=== PATIENT | male | born 1970 | race African-American/Black ===

== ENCOUNTER 2016-08-08 11:29 | Emergency (ER) | payer OTHER ==
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
== END 2016-08-08 15:16 | disposition home or self-care (01) ==
LOC: M ED 11:29
DX: R07.89 Other chest pain (principal); M25.552 Pain in left hip; V43.63XA Car passenger injured in collision with pick-up truck in traffic accident, initial encounter; Y92.410 Unspecified street and highway as the place of occurrence of the external cause; I10 Essential (primary) hypertension; G47.00 Insomnia, unspecified; F17.210 Nicotine dependence, cigarettes, uncomplicated

== ENCOUNTER → 2018-03-22 | Outpatient (CLI) | payer OTHER | LOC: M PAIN 10:30 | DX: M79.10 Myalgia, unspecified site (principal); M47.812 Spondylosis without myelopathy or radiculopathy, cervical region; I10 Essential (primary) hypertension; M54.5 Low back pain; M25.561 Pain in right knee; M10.9 Gout, unspecified; E78.5 Hyperlipidemia, unspecified; G56.03 Carpal tunnel syndrome, bilateral upper limbs; F32.9 Major depressive disorder, single episode, unspecified; E55.9 Vitamin D deficiency, unspecified; G47.30 Sleep apnea, unspecified; F17.210 Nicotine dependence, cigarettes, uncomplicated; M19.90 Unspecified osteoarthritis, unspecified site; G62.9 Polyneuropathy, unspecified; Z79.899 Other long term (current) drug therapy; Z88.8 Allergy status to other drugs, medicaments and biological substances | CPT/HCPCS: G0463 ==

== ENCOUNTER → 2018-04-26 | Outpatient (CLI) | payer OTHER ==
[~2018-04-26] MED LIST: BUPIVACAINE HCL 0.25% 10 ML VIAL As Ordered; BUPIVACAINE HCL 0.25% 30 ML VIAL As Ordered; TRIAMCINOLONE ACETONIDE SUSP 40 MG/ML VIAL (J3301) As Ordered
== END ==
LOC: M PAIN 11:30
DX: M79.18 Myalgia, other site (principal); M54.2 Cervicalgia; M25.511 Pain in right shoulder; M25.512 Pain in left shoulder; I10 Essential (primary) hypertension; E78.5 Hyperlipidemia, unspecified; F32.9 Major depressive disorder, single episode, unspecified; M19.90 Unspecified osteoarthritis, unspecified site; G47.30 Sleep apnea, unspecified; F17.210 Nicotine dependence, cigarettes, uncomplicated; Z79.899 Other long term (current) drug therapy; Z88.8 Allergy status to other drugs, medicaments and biological substances; Z87.39 Personal history of other diseases of the musculoskeletal system and connective tissue
CPT/HCPCS: J3301

== ENCOUNTER → 2018-06-04 | Outpatient (CLI) | payer OTHER ==
--- NOTE | 2018-06-19 00:06 | ECWPNPC ---
PATIENT NAME: KAVITA STANLEY : 1970 GENDER: MALE VISIT DATE: 06/04/2018 DISCHARGE DATE: 06/04/18 1606 VISIT LOCKED DATE TIME: PHYSICIAN: HARJEET BENTON MD RESOURCE: HARJEET BENTON MD REASON FOR APPOINTMENT 1. POST TPI HISTORY OF PRESENT ILLNESS HISTORY OF PRESENT ILLNESS: PAIN THE PATIENT DESCRIBES THE PAIN... 47 YEAR OLD MALE PATIENT WITH A HISTORY OF NECK PAIN. PATIENT DESCRIBES THE PAIN ACHING, BURNING, AND HAVING IT ALL THE TIME WITH A PAIN SCORE OF 4-9/10 DEPENDING ON PHYSICAL ACTIVITY. THE PATIENT RECENTLY HAD A TRIGGER POINT INJECTION DONE ON 04/26/18 AND REPORTS THAT IT HELPED BUT HE STILL HAS SOME PAIN IN THE MIDDLE NECK AREA. THE PATIENT IS CURRENTLY TAKING BACLOFEN AND TYLENOL TO SPORTS TEACHER IN PAIN RELIEF. PATIENT DENIES UNEXPLAINABLE WEIGHT LOSS, FEVER, CHILLS, NEW CHANGES ON HIS URINARY OR BOWEL CONTROL. FALL RISK SCREENING: SCREENING :NO FALLS IN THE PAST YEAR CURRENT MEDICATIONS TAKING LISINOPRIL 20 MG TABLET 1 TABLET ORALLY ONCE A DAY, NOTES: 06-26-17 TAKING MELOXICAM 15 MG TABLET ONE HALF ORALLY BID, NOTES: 06-26-17 TAKING ALLOPURINOL 100 MG TABLET 1 TABLET ORALLY ONCE A DAY, NOTES: 06-26-17 TAKING AMLODIPINE BESYLATE 10 MG TABLET 1 TABLET ORALLY ONCE A DAY, NOTES: 06-26-17889 TAKING BACLOFEN 10 MG TABLET 1 TABLET WITH FOOD OR MILK ORALLY BID, NOTES: 06-26-17 TAKING CHOLECALCIFEROL 2000 UNIT CAPSULE 1 CAPSULE ORALLY ONCE A DAY, NOTES: 07-05 TAKING FLUOXETINE 20 MG CAPSULE 1 CAPSULE ORALLY ONCE A DAY, NOTES: 06-26-17 TAKING ACETAMINOPHEN 650 MG TABLET 1 TABLET NEEDED ORALLY EVERY 6 HRS, NOTES: 06-26-17 TAKING REFRESH LIQUIGEL 1 % SOLUTION 1 DROP INTO AFFECTED EYE NEEDED OPHTHALMIC THREE TIMES A DAY, NOTES: 06-26-17 DISCONTINUED GABAPENTIN 300 MG CAPSULE 1 CAPSULE ORALLY THREE TIMES DAILY, NOTES: 06-26-17 MEDICATION LIST REVIEWED AND RECONCILED WITH THE PATIENT PAST MEDICAL HISTORY HYPERTENSION CHRONIC LOW BACK PAIN RIGHT KNEE PAIN GOUT HYPERLIPIDEMIA CARPAL TUNNEL SYNDROME BILATERAL DEPRESSION OSTEOARTHRITIS NEUROPATHY VITAMIN D DEFICIENCY SLEEP APNEA, NO CPAP ALLERGIES NICOTINE PATCHES: RASH: ALLERGY CHANTIX: NIGHTMARES: SIDE EFFECTS SURGICAL HISTORY APPENDECTOMY 1981 LEFT KNEE ACL 1993 SINUS SURGERY 2002 ANAL FISTULA REPAIR 2013 TONSILLECTOMY 1983 FAMILY HISTORY MOTHER: 84 YRS, DIAGNOSED WITH DIABETES, HYPERTENSION 2 BROTHER(S) , 2 SISTER(S) - HEALTHY. 1 SON(S) , 1 DAUGHTER(S) - HEALTHY. DAD MEDICAL HISTORY UNKNOWN. SOCIAL HISTORY GENERAL: TOBACCO USE ARE YOU A:CURRENT SMOKER ARE YOU INTERESTED IN QUITTING?THINKING ABOUT QUITTING ALLERGY TO CHANTIX AND NICOTINE PATCHES. PT WANTS TO QUIT, BUT NOT AT THIS TIME R/T STRESS COUNSELED THE PATIENT ON SMOKING CESSATION, EDUCATION [id number]/18/2018 HOW MANY CIGARETTES A DAY DO YOU SMOKE?11-20 HOW SOON AFTER YOU WAKE UP DO YOU SMOKE YOUR FIRST CIGARETTE?WITHIN 5 MIN HOW OFTEN DO YOU SMOKE CIGARETTES?EVERY DAY PATIENT COUNSELED ON THE DANGERS OF TOBACCO USE AND URGED TO QUIT:04/26/2018 ALCOHOL SCREENING DID YOU HAVE A DRINK CONTAINING ALCOHOL IN THE PAST YEAR?NO POINTS0 INTERPRETATIONNEGATIVE RECREATIONAL DRUG USE DRUG USE?YES MARIJUANA USE OCCASIONAL, ABOUT 3X/ WEEK CAFFEINE CAFFEINE USE?YES HOW OFTEN AND HOW MUCH? COFFEE USE RARELY LANGUAGE LANGUAGES SPOKEN:BOTSWANAN LEARNING BARRIERS / SPECIAL NEEDS BARRIERS TO LEARNING?NO HEARING IMPAIRED?NO VISION IMPAIRED?NO WEARS GLASSES COGNITIVELY IMPAIRED?NO READINESS TO LEARN?YES LEARNING PREFERENCES?NO LEARNING CAPABILITIES PRESENT?YES EMOTIONAL BARRIERS?NO SPECIAL DEVICES?YES WEARS A BRACE ON BOTH WRISTS, BRACE ON RIGHT KNEE PRINT PRODUCTION ASSOCIATE NEEDED?NO DOMESTIC VIOLENCE DO YOU FEEL SAFE IN YOUR ENVIRONMENT?YES OCCUPATION: MAINTENANCE WORK, UNEMPLOYED AT PRESENT. DIET: REGULAR. EXERCISE: WALKS. MARITAL STATUS: SINGLE. PAIN CLINIC PFS, CLERGY, PUBLIC HEALTH REFERRALS PFS REFERRAL NEEDED?NO CLERGY REFERRAL NEEDED?NO PUBLIC HEALTH REFERRAL NEEDED?NO HAS THE PATIENT BEEN EDUCATED REGARDING HIS/HER PLAN OF CARE?YES HAS THE PATIENT BEEN EDUCATED REGARDING PAIN, THE RISK FOR PAIN, THE IMPORTANCE OF EFFECTIVE PAIN MANAGEMENT, AND THE PAIN ASSESSMENT PROCESS?YES ADVANCE DIRECTIVE ADVANCE DIRECTIVE DISCUSSED WITH PATIENT:YES NO ADVANCED DIRECTIVES, INFORMATION GIVEN ABOUT HEALTH CARE PROXY 06/04/18 PT. DECLINES INFORMATION VD HOSPITALIZATION/MAJOR DIAGNOSTIC PROCEDURE R/T SURGERIES REVIEW OF SYSTEMS REVIEWED BY: PROVIDER: HARJEET BENTON MD . CONSTITUTIONAL: ANY CHANGE IN YOUR MEDICAL CONDITION? NO . CHILLS NO . FEVER NO . INFECTION: DO YOU HAVE NEW INFECTIONS? NO . DO YOU HAVE HISTORY OF MRSA? NO . MUSCULOSKELETAL: ANY NEW PATTERNS OF PAIN OR NUMBNESS? NO . GASTROENTEROLOGY: ANY NEW CHANGE IN BOWEL CONTROL? NO . GENITOURINARY: ANY NEW CHANGE IN BLADDER CONTROL? NO . IS THERE A CHANCE YOU COULD BE ? NO . HEMATOLOGY/LYMPH: DO YOU TAKE ANY BLOOD THINNERS? (FOR EXAMPLE- COUMADIN, PLAVIX, AGGRENOX, PLATEL, PRADAXA, OR XARELTO) NO . WHEN WAS YOUR LAST DOSE? DATE: TIME: . NEUROLOGY: HAVE YOU FALLEN IN THE PAST 6 MONTHS? NO . ANY NEW EXTREMITY NUMBNESS OR WEAKNESS? NO . CARDIOLOGY: DO YOU HAVE A PACEMAKER OR DEFIBRILLATOR? NO . RESPIRATORY: HAVE YOU BEEN SICK IN THE PAST WEEK? NO . FEVER NO . FLU LIKE SYMPTOMS? NO . COUGH NO . INTEGUMENTARY: DO YOU HAVE ANY RASHES OR OPEN SORES? NO . ALLERGIC/IMMUNO: ARE YOU ALLERGIC TO SHELLFISH OR IV DYE? NO . ANY NEW ALLERGIES? NO . PSYCHIATRIC: DO YOU HAVE THOUGHTS OF HURTING YOURSELF OR SOMEONE ELSE? NO . ARE YOU ABUSED, NEGLECTED, OR IN AN UNSAFE ENVIRONMENT? NO . ENDOCRINOLOGY: ARE YOU DIABETIC? NO . OTHER: DO YOU NEED ANY PRESCRIPTIONS? NO . IF YES, PLEASE LIST: ____ . ANY NEW PROBLEMS WITH YOUR MEDICATIONS? NO . WHEN DID YOU LAST EAT? ____ . WHEN DID YOU LAST DRINK? ____ . WHAT DID YOU LAST DRINK? ____ . NAME OF PERSON DRIVING YOU HOME? ____ . DO YOU HAVE ANY OTHER QUESTIONS OR CONCERNS NO . VITAL SIGNS WT 219 LBS, HT 71 IN, BMI 30.54 INDEX, BP 123/75 ON LEFT SIDE, HR 92 /MIN, RR 18 /MIN, TEMP 98.9 F, OXYGEN SAT % 99%, SAFE IN ENV? (Y/N) Y, NA INITIALS AW 1500, REVIEWED BY: VD. EXAMINATION GENERAL EXAMINATION: PATIENT IS ALERT O X 3 AND COOPERATIVE. PRESENCE OF TRIGGER POINTS, BANDS OF TISSUE, AND RESTRICTION OF MOVEMENT OF THE NECK. ASSESSMENTS MYALGIA, OTHER SITE - M79.18 (PRIMARY) TREATMENT MYALGIA, OTHER SITE CLINICAL NOTES: WE DISCUSSED SEVERAL ISSUES WITH MR. STANLEY'S PAIN MANAGEMENT CASE. DUE TO THE PRESENCE OF TRIGGER POINTS, BANDS OF TISSUE, AND RESTRICTION OF MOVEMENT OF THE NECK, I WOULD LIKE TO MOVE FORWARD WITH TRIGGER POINT INJECTIONS AT THIS TIME. WE DISCUSSED THE BENEFITS, RISKS, AND ALTERNATIVES OF THE INJECTION AND THE PATIENT WOULD LIKE TO PROCEED. THE PATIENT WILL FOLLOW UP WITH ME 3-4 WEEKS AFTER THE PROCEDURE. INSTRUCTIONS WERE GIVEN, QUESTIONS WERE ANSWERED, PATIENT REPORTS UNDERSTANDING AND AGREES WITH THE PLAN. I, MARISSA RIDLEY, DOCUMENTED THE ABOVE INFORMATION ACTING A SCRIBE FOR DR. BENTON. I HAVE REVIEWED THE ABOVE DOCUMENT, WRITTEN BY MARISSA FOURNIERIBCait AND I VERIFY THAT IT IS ACCURATE. PROCEDURE CODES FA211 ESTABILISHED PATIENT [facility] FACILITY CHARGE G8427 CURRENT MEDS W/DOSAGES DOCUMENTED G8730 PAIN ASSESS POS TOOL F/U PLAN DOC DISPOSITION & COMMUNICATION FOLLOW UP 3 WEEKS ELECTRONICALLY SIGNED BY HARJEET BENTON MD, MD ON 06/18/2018 AT 06:39 PM EST DISCLAIMER : THIS IS A VISIT SUMMARY EXTRACTED FROM THE [employer] CHART. IT IS NOT A COPY OF THE [employer] PROGRESS NOTE. MTDJenny
== END ==
LOC: M PAIN 14:45
PROVIDERS: ATTEND Anesthesiology
DX: M79.18 Myalgia, other site (principal); M54.2 Cervicalgia; I10 Essential (primary) hypertension; E78.5 Hyperlipidemia, unspecified; F32.9 Major depressive disorder, single episode, unspecified; M19.90 Unspecified osteoarthritis, unspecified site; G62.9 Polyneuropathy, unspecified; G47.30 Sleep apnea, unspecified; F17.210 Nicotine dependence, cigarettes, uncomplicated; Z79.899 Other long term (current) drug therapy; Z88.8 Allergy status to other drugs, medicaments and biological substances; Z87.39 Personal history of other diseases of the musculoskeletal system and connective tissue

== ENCOUNTER → 2018-06-20 | Outpatient (CLI) | payer OTHER ==
[~2018-06-20] MED LIST changes: -BUPIVACAINE HCL 0.25% 10 ML VIAL As Ordered; +BUPIVACAINE HCL 0.25% 10 ML VIAL As Ordered ONE; -BUPIVACAINE HCL 0.25% 30 ML VIAL As Ordered; +BUPIVACAINE HCL 0.25% 30 ML VIAL As Ordered ONE; -TRIAMCINOLONE ACETONIDE SUSP 40 MG/ML VIAL (J3301) As Ordered; +TRIAMCINOLONE ACETONIDE SUSP 40 MG/ML VIAL (J3301) As Ordered ONE
--- NOTE | 2018-07-06 23:26 | ECWPNPC ---
PATIENT NAME: KAVITA STANLEY : 1970 GENDER: MALE VISIT DATE: 06/20/2018 DISCHARGE DATE: 06/20/18 1409 VISIT LOCKED DATE TIME: PHYSICIAN: HARJEET BENTON MD RESOURCE: HARJEET BENTON MD REASON FOR APPOINTMENT 1. TPI HISTORY OF PRESENT ILLNESS HISTORY OF PRESENT ILLNESS: PAIN THE PATIENT DESCRIBES THE PAIN... FALL RISK SCREENING: SCREENING :NO FALLS IN THE PAST YEAR CURRENT MEDICATIONS TAKING LISINOPRIL 20 MG TABLET 1 TABLET ORALLY ONCE A DAY TAKING BACLOFEN 10 MG TABLET 1 TABLET WITH FOOD OR MILK ORALLY BID TAKING MELOXICAM 15 MG TABLET ONE HALF ORALLY BID TAKING ALLOPURINOL 100 MG TABLET 1 TABLET ORALLY ONCE A DAY TAKING AMLODIPINE BESYLATE 10 MG TABLET 1 TABLET ORALLY ONCE A DAY TAKING CHOLECALCIFEROL 2000 UNIT CAPSULE 1 CAPSULE ORALLY ONCE A DAY TAKING FLUOXETINE 20 MG CAPSULE 1 CAPSULE ORALLY ONCE A DAY TAKING ACETAMINOPHEN 650 MG TABLET 1 TABLET NEEDED ORALLY EVERY 6 HRS TAKING REFRESH LIQUIGEL 1 % SOLUTION 1 DROP INTO AFFECTED EYE NEEDED OPHTHALMIC THREE TIMES A DAY TAKING DICLOFENAC SODIUM & BENZALK CL 1 & 0.13 % THERAPY PACK COMBINATION BID MEDICATION LIST REVIEWED AND RECONCILED WITH THE PATIENT PAST MEDICAL HISTORY HYPERTENSION CHRONIC LOW BACK PAIN RIGHT KNEE PAIN GOUT HYPERLIPIDEMIA CARPAL TUNNEL SYNDROME BILATERAL DEPRESSION OSTEOARTHRITIS NEUROPATHY VITAMIN D DEFICIENCY SLEEP APNEA, NO CPAP ALLERGIES NICOTINE PATCHES: RASH: ALLERGY CHANTIX: NIGHTMARES: SIDE EFFECTS SURGICAL HISTORY APPENDECTOMY 1981 LEFT KNEE ACL 1992 SINUS SURGERY 2002 ANAL FISTULA REPAIR 2013 TONSILLECTOMY 1983 FAMILY HISTORY MOTHER: 84 YRS, DIAGNOSED WITH DIABETES, HYPERTENSION 2 BROTHER(S) , 2 SISTER(S) - HEALTHY. 1 SON(S) , 1 DAUGHTER(S) - HEALTHY. DAD MEDICAL HISTORY UNKNOWN. HOSPITALIZATION/MAJOR DIAGNOSTIC PROCEDURE R/T SURGERIES REVIEW OF SYSTEMS REVIEWED BY: PROVIDER: . CONSTITUTIONAL: ANY CHANGE IN YOUR MEDICAL CONDITION? NO . CHILLS NO . FEVER NO . INFECTION: DO YOU HAVE NEW INFECTIONS? NO . DO YOU HAVE HISTORY OF MRSA? NO . MUSCULOSKELETAL: ANY NEW PATTERNS OF PAIN OR NUMBNESS? NO . GASTROENTEROLOGY: ANY NEW CHANGE IN BOWEL CONTROL? NO . GENITOURINARY: ANY NEW CHANGE IN BLADDER CONTROL? NO . IS THERE A CHANCE YOU COULD BE ? NO . HEMATOLOGY/LYMPH: DO YOU TAKE ANY BLOOD THINNERS? (FOR EXAMPLE- COUMADIN, PLAVIX, AGGRENOX, PLATEL, PRADAXA, OR XARELTO) NO . WHEN WAS YOUR LAST DOSE? DATE: TIME: . NEUROLOGY: HAVE YOU FALLEN IN THE PAST 6 MONTHS? NO . ANY NEW EXTREMITY NUMBNESS OR WEAKNESS? NO . CARDIOLOGY: DO YOU HAVE A PACEMAKER OR DEFIBRILLATOR? NO . RESPIRATORY: HAVE YOU BEEN SICK IN THE PAST WEEK? NO . FEVER NO . FLU LIKE SYMPTOMS? NO . COUGH NO . INTEGUMENTARY: DO YOU HAVE ANY RASHES OR OPEN SORES? NO . ALLERGIC/IMMUNO: ARE YOU ALLERGIC TO SHELLFISH OR IV DYE? NO . ANY NEW ALLERGIES? NO . PSYCHIATRIC: DO YOU HAVE THOUGHTS OF HURTING YOURSELF OR SOMEONE ELSE? NO . ARE YOU ABUSED, NEGLECTED, OR IN AN UNSAFE ENVIRONMENT? NO . ENDOCRINOLOGY: ARE YOU DIABETIC? NO . OTHER: DO YOU NEED ANY PRESCRIPTIONS? NO . IF YES, PLEASE LIST: ____ . ANY NEW PROBLEMS WITH YOUR MEDICATIONS? NO . WHEN DID YOU LAST EAT? ____LAST NIGHT . WHEN DID YOU LAST DRINK? ____THIS MNORNING 0400 . WHAT DID YOU LAST DRINK? ____WATER . NAME OF PERSON DRIVING YOU HOME? ____WALKING . DO YOU HAVE ANY OTHER QUESTIONS OR CONCERNS NO . VITAL SIGNS WT 223.4 LBS, HT 71 IN, BMI 31.15 INDEX, BP 132/95 MM HG, HR 106 /MIN, RR 18 /MIN, TEMP 98.3 F, OXYGEN SAT % 95%, SAFE IN ENV? (Y/N) YES, NA INITIALS AW 1319, REVIEWED BY: KG. ASSESSMENTS MYALGIA, OTHER SITE - M79.18 (PRIMARY) PROCEDURES PN TRIGGER POINT INJECTION WITH STEROIDS PRE PROCEDURE DIAGNOSIS 1. MYALGIA 2. PAIN AT BILATERAL NECK AREA AND BILATERAL THORACIC AREA POST PROCEDURE DIAGNOSIS 1. MYALGIA 2. PAIN AT BILATERAL NECK AREA AND BILATERAL THORACIC AREA PROCEDURE TRIGGER POINT INJECTION AT BILATERAL NECK AREA AND BILATERAL THORACIC AREA SURGEON DR. HARJEET BENTON ABRASIVE GRADER HELPER NONE ANESTHESIA LOCAL PRE PROCEDURE NOTE THE PATIENT HAS A HISTORY OF CHRONIC PAIN AT THE RIGHT AND LEFT NECK AREA AND RIGHT AND LEFT THORACIC AREA. I EVALUATE THE PATIENT AND REVIEWED THE CHART. THERE IS EVIDENCE OF BANDS OF TISSUE WITH RESTRICTION OF MOVEMENT AND PRESENCE OF TRIGGER POINT AT THE AFFECTED AREA. I WENT OVER THE RISKS, ALTERNATIVES, AND BENEFITS ASSOCIATED WITH THIS PROCEDURE. THE PATIENT WOULD LIKE TO PROCEED AND GIVE CONSENT TO PERFORMED THE PROCEDURE. THE PATIENT DENIES UNEXPLAINABLE WEIGHT LOSS, FEVER, CHILLS, OR NEW CHANGES IN URINARY OR BOWEL CONTROL DESCRIPTION OF PROCEDURE THE PATIENT WAS BROUGHT TO THE PROCEDURE ROOM AND PLACED IN THE SITTING POSITION. THE AREA WAS CLEANED WITH ALCOHOL. THE PROCEDURE WAS DONE USING [employer]IC STERILE TECHNIQUE. I CHECKED LATERALITY AND THE LEVEL WHERE THE PROCEDURE WAS GOING TO BE PERFORMED WITH THE PATIENT AND THE SUPPORTING STAFF AT THE MOMENT OF THE TIME OUT IN THE PROCEDURE ROOM. USING A 25-GAUGE NEEDLE, TRIGGER POINTS WERE INJECTED AT THE RIGHT AND LEFT NECK AREA AND RIGHT AND LEFT THORACIC AREA WITH A TOTAL OF 40 ML OF BUPIVACAINE 0.25% AND KENALOG 40 MG. THERE WAS NO EVIDENCE OF BLOOD, PARESTHESIA OR CEREBROSPINAL FLUID DURING THE PROCEDURE. THE PATIENT WAS SENT TO THE RECOVERY ROOM. THE PATIENT WAS MOVING THE EXTREMITIES AND DOING WELL. THERE WAS NO COMPLICATION DURING THE PROCEDURE POST PROCEDURE NOTE THE PATIENT WILL BE SEEN IN A FOLLOW UP IN THE NEXT FEW WEEKS. INSTRUCTIONS WERE GIVEN, QUESTIONS WERE ANSWERED, AND THE PATIENT EXPRESSED UNDERSTANDING AND AGREES WITH THE PLAN. I, MIGUEL ANGEL LEMONS, DOCUMENTED THE ABOVE INFORMATION ACTING A SCRIBE FOR DR. BENTON. I HAVE REVIEWED THE ABOVE DOCUMENT, WRITTEN BY MIGUEL ANGEL GOLDBERG AND I VERIFY THAT IT IS ACCURATE. PROCEDURE CODES 99896 INJECT TRIGGER POINTS 3/> DISPOSITION & COMMUNICATION FOLLOW UP 3 WEEKS ELECTRONICALLY SIGNED BY HARJEET BENTON MD, MD ON 07/06/2018 AT 08:41 PM EST DISCLAIMER : THIS IS A VISIT SUMMARY EXTRACTED FROM THE [employer] CHART. IT IS NOT A COPY OF THE [employer] PROGRESS NOTE. MTDJenny
== END ==
LOC: M PAIN 13:00
PROVIDERS: ATTEND Anesthesiology
DX: M79.18 Myalgia, other site (principal); M54.2 Cervicalgia; M54.6 Pain in thoracic spine; I10 Essential (primary) hypertension; E78.5 Hyperlipidemia, unspecified; F32.9 Major depressive disorder, single episode, unspecified; M19.90 Unspecified osteoarthritis, unspecified site; G62.9 Polyneuropathy, unspecified; G47.30 Sleep apnea, unspecified; Z79.899 Other long term (current) drug therapy; Z88.8 Allergy status to other drugs, medicaments and biological substances; Z87.39 Personal history of other diseases of the musculoskeletal system and connective tissue
CPT/HCPCS: 20553; J3301

== ENCOUNTER 2019-03-21 13:52 | Emergency (ER) | payer OTHER ==
[~2019-03-21] VITALS: Ht 180.3 cm; Wt 103.5 kg
[2019-03-21 14:12] VITALS: BP 132/88
--- NOTE | 2019-03-21 17:36 | REP ---
HISTORY: Pain and swelling. TECHNIQUE: Multiple ultrasonographic images of the deep venous structures of the right thigh were obtained from the common femoral vein to the popliteal vein along with Doppler interrogation and color flow Doppler images. FINDINGS: There is no abnormal echogenic material seen within any of the visualized deep venous structures that would suggest acute thrombosis. Coaptation is unremarkable throughout. Doppler interrogation shows an expected response to respiratory variability and augmentation. The color flow images show what appears to be a normal vascular pattern throughout. IMPRESSION: There is no ultrasonographic evidence of deep venous thrombosis involving any of the visualized deep venous structures of the right thigh, as described above. Electronically Signed by Henri Ramos DO 03/24/2019 04:10 P
== END 2019-03-21 16:45 | disposition left against medical advice (07) ==
LOC: M ED 13:52
DX: Z53.29 Procedure and treatment not carried out because of patient's decision for other reasons (principal); R22.41 Localized swelling, mass and lump, right lower limb; I10 Essential (primary) hypertension; F17.200 Nicotine dependence, unspecified, uncomplicated

== ENCOUNTER 2022-12-01 09:56 | Day surgery (SDC) | payer OTHER ==
[~2022-12-01] VITALS: Ht 177.8 cm; Wt 102.0 kg
[~2022-12-01 09:56] MED LIST changes: +AMLO1TAB25 PO; +BACL10TA2 PO; -BUPIVACAINE HCL 0.25% 10 ML VIAL As Ordered ONE; -BUPIVACAINE HCL 0.25% 30 ML VIAL As Ordered ONE; +FLUO40CA PO; +IBUP200C34 PO; +LISI20TA33 PO; +NS 1,000 ML IV ONE; -TRIAMCINOLONE ACETONIDE SUSP 40 MG/ML VIAL (J3301) As Ordered ONE
[2022-12-01] MEDS ORDERED: LIDOCAINE 2% 100MG/5ML SDV (FOR ANES.) As Ordered ONE (10:55)
[2022-12-01] MEDS ORDERED: propofoL 200 MG/20 ML VIAL As Ordered ONE ×2 (10:55→11:38)
[2022-12-01] MEDS ORDERED: GLYCOPYRROLATE INJ 0.2 MG/ML 2 ML VIAL As Ordered ONE (10:55)
[2022-12-01 11:44] VITALS: TEMP 97.9
[2022-12-01 12:05] VITALS: BP 150/99; O2SAT 96
== END 2022-12-01 12:12 | disposition home or self-care (01) ==
LOC: M OPP 09:56
PROVIDERS: ATTEND Surgery
DX: D12.6 Benign neoplasm of colon, unspecified (principal); K57.30 Diverticulosis of large intestine without perforation or abscess without bleeding; K64.4 Residual hemorrhoidal skin tags; K64.8 Other hemorrhoids; R19.5 Other fecal abnormalities; K44.9 Diaphragmatic hernia without obstruction or gangrene; K21.00 Gastro-esophageal reflux disease with esophagitis, without bleeding; K31.89 Other diseases of stomach and duodenum; K26.9 Duodenal ulcer, unspecified as acute or chronic, without hemorrhage or perforation; F17.200 Nicotine dependence, unspecified, uncomplicated; Z79.1 Long term (current) use of non-steroidal anti-inflammatories (NSAID); Z79.2 Long term (current) use of antibiotics; Z79.51 Long term (current) use of inhaled steroids; Z79.899 Other long term (current) drug therapy; Z88.8 Allergy status to other drugs, medicaments and biological substances; Z91.048 Other nonmedicinal substance allergy status

== ENCOUNTER → 2023-02-01 | Outpatient (CLI) | payer OTHER ==
[~2023-02-01] MED LIST changes: -NS 1,000 ML IV ONE
== END ==
LOC: M SOG 08:03
PROVIDERS: ATTEND Physician Assistant
DX: Z53.9 Procedure and treatment not carried out, unspecified reason (principal); M25.532 Pain in left wrist

== ENCOUNTER → 2023-03-06 | Outpatient (CLI) | payer OTHER | LOC: M SOG 08:08 | PROVIDERS: ATTEND Physician Assistant | DX: M25.532 Pain in left wrist (principal); Z53.8 Procedure and treatment not carried out for other reasons ==

== ENCOUNTER → 2023-07-19 | Outpatient (CLI) | payer MEDICAID, SELFPAY | LOC: M OUTALCOH 07:43 | PROVIDERS: ATTEND Psychiatry & Neurology Psychiatry | DX: F10.10 Alcohol abuse, uncomplicated (principal) ==